=== PATIENT | female | born 1990 | race Caucasian/White ===

== ENCOUNTER 2022-09-24 10:29 | Emergency (ER) | payer MEDICAID, SELFPAY ==
[2022-09-24 10:39] VITALS: BP 100/60; PULSE 83; RESP 20; TEMP 37.2; O2SAT 96; BMI 43.4
--- NOTE | 2022-09-24 11:03 | XR_ITS ---
The [address] [id number] Patient Name: JS LA MRN: [id number] date: 1990 Sex: F Assigned Patient Location: ED.MAIN Current Patient Location: ED.MAIN Accession/Order Number: [id number] Exam Date: 09/24/2022 11:10 Report Date: 09/24/2022 11:34 At the request of: CALI BOOKER Procedure: XR chest 2V EXAMINATION: XR chest 2V HISTORY: cough , nausea, vomiting, sore throat COMPARISON: No relevant comparison available. FINDINGS: LUNGS: No significant pulmonary parenchymal abnormalities. VASCULATURE: No increased pulmonary vasculature. PLEURA: No pneumothorax, effusion, or pleural thickening. CARDIAC: No cardiomegaly or cardiac silhouette abnormality. MEDIASTINUM: No visible mass or adenopathy. BONES: No fracture or visible bone lesion. OTHER: Negative. IMPRESSION: 1. No acute cardiopulmonary process. Electronically authenticated by: DHEERAJ ELDER Date: 09/24/2022 11:34
--- NOTE | 2022-09-24 11:03 | ED_ITS ---
HPI - General Adult General Chief complaint: Upper Respiratory Infection Stated complaint: EAR PAIN Time Seen by Provider: 09/24/22 11:02 Source: patient Mode of arrival: walk-in Limitations: no limitations History of Present Illness HPI narrative: . Patient is a 32 female who is presenting to the Emergency Room who is presenting with 3 days of upper respiratory symptoms of cough, congestion, sore throat, posttussive emesis, and nausea and vomiting. Patient is not eating much in the last 3 days. No sick contacts that we're aware of besides a strep throat contact. Patient has no rash. No headache, no neck pain. Patient has no other acute complaints at this time. Patient just started using DayQuil yesterday. Patient looks well. Related Data Previous Rx's Medication Instructions Recorded ondansetron 4 mg disintegrating 4 mg PO Q4H PRN nausea and 09/24/22 tablet vomiting 3 days #18 tabs Allergies Allergy/AdvReac Type Severity Reaction Status Date / Time No Known Drug Allergies Allergy Verified 09/24/22 10:38 Review of Systems ROS Narrative All systems are negative except as noted/marked. All systems reviewed and otherwise negative. PFSH PFSH Social History Smoking status: Heavy tobacco smoker Exam Narrative Exam Narrative: Nurses note and vital signs reviewed and patient is not hypoxic. General: The patient appears well and in no apparent distress. Patient is resting comfortably on cart. Patient is not toxic, lethargic, or listless Skin: Warm, dry, no pallor noted. There is no rash noted. No petechiae, purpura. Head: Normocephalic, atraumatic, no tenderness to palpation to bilateral frontal maxillary sinus Eye: Normal conjunctiva, no drainage, EOMI. PERRL Ears, Nose, Mouth, and Throat: oral mucosa is moist. Nares patent. Mouth without vesicles. patient's bilateral tympanic membrane shows no erythema, perforation or bulging, clear drainage noted to the posterior pharynx, mild cobblestoning noted. Mild bilateral tonsillar hypertrophy, no posterior pharyngeal petechiae, exudate, or any other intraoral pathology. Cardiovascular: Regular Rate and Rhythm, no murmur, gallop, rub Respiratory: Patient is in no distress, no accessory muscle use, lungs are clear to auscultation, no wheezing, rales or rhonchi Back: non-tender, no CVA tenderness bilaterally to percussion. No CT LS midline pain GI: soft, obese, no tenderness to palpation, no masses appreciated. No rebound, guarding, or rigidity noted. No flank pain bilateral, No distention Musculoskeletal: Patient has full range of motion of all of the extremities, no motor, sensory, or focal neurological deficits Neurological: A&O x3, normal speech Psychiatric: Cooperative Constitutional Vital Signs - 24 hr 09/24/22 10:39 09/24/22 12:43 Temperature 98.9 F 98.5 F Pulse Rate 78 Pulse Rate [Monitor] 83 Respiratory Rate 20 14 Blood Pressure 121/46 H Blood Pressure [Right Arm] 100/60 Pulse Oximetry 96 98 Oxygen Delivery Method Room Air Course Vital Signs Vital signs: Vital Signs Temperature 98.9 F 09/24/22 10:39 Pulse Rate 83 09/24/22 10:39 Respiratory Rate 20 09/24/22 10:39 Blood Pressure 100/60 09/24/22 10:39 Pulse Oximetry 96 09/24/22 10:39 Oxygen Delivery Method Room Air 09/24/22 10:39 Temperature 98.5 F 09/24/22 12:43 Pulse Rate 78 09/24/22 12:43 Respiratory Rate 14 09/24/22 12:43 Blood Pressure 121/46 H 09/24/22 12:43 Pulse Oximetry 98 09/24/22 12:43 Oxygen Delivery Method Room Air 09/24/22 10:39 Medical Decision Making MDM Narrative Medical decision making narrative: patient was educated on using DayQuil, NyQuil, and Flonase. Patient is given a prescription for Zofran. Patient strep test negative. Chest x-ray show no acute pathology. Patient will follow-up with PCP. Patient will continue treating symptoms [id number]. Medical Records Medical records narrative: chest x-ray shows no acute cardiopulmonary disease, please see the official report. Lab Data Lab results reviewed: Yes I reviewed the patient's lab results Labs: Lab Results 09/24/22 Range/Units 10:48 Streptococcus Screen Negative Discharge Plan Discharge Chief Complaint: Upper Respiratory Infection Clinical Impression: URI (upper respiratory infection), Cough, Nausea & vomiting, Sore throat, Post- tussive emesis Patient Disposition: Home, Self-Care Time of Disposition Decision: 12:45 Condition: Good Mode of Transportation: Private Vehicle Prescriptions / Home Meds: New ondansetron 4 mg tablet,disintegrating 4 mg PO Q4H PRN (Reason: nausea and vomiting) 3 Days Qty: 18 0RF Instructions: Pharyngitis (ED), Upper Respiratory Infection (ED), Acute Nausea and Vomiting (ED), Acute Cough (ED) Additional Instructions: You may use multiple [id number] medications to help treat her symptoms, including DayQuil, NyQuil, Flonase, and Mucinex as needed. YOU may also use Tylenol and Motrin, alternating every four hours to help with body aches or pains if they exist. Use Zofran ODT 4 mg tablets to help increase fluid intake. Follow-up with your PCP if no improvement or other questions in 3-5 days. Return to the Emergency Room significant shortness of breath or any other acute concerns Stand Alone Forms: Portal Instructions Referrals: Physician,Non-Staff, MD [Primary Care Provider] - 1 week
[2022-09-24 12:05] LABS: Internal Control Within Normal Limits; Strep A Antigen Screen Negative
[2022-09-24 12:43] VITALS: BP 121/46; PULSE 78; RESP 14; TEMP 36.9; O2SAT 98
== END 2022-09-24 13:16 | disposition home or self-care (01) ==
PROVIDERS: Emergency Provider Emergency Medicine
DX: J06.9 Acute upper respiratory infection, unspecified (principal); R05.9 Cough, unspecified; R11.2 Nausea with vomiting, unspecified; J02.9 Acute pharyngitis, unspecified; R11.10 Vomiting, unspecified; F17.210 Nicotine dependence, cigarettes, uncomplicated
CPT/HCPCS: 71046; 87070; 87880; 99284